=== PATIENT | female | born 1960 | race Caucasian/White ===

== ENCOUNTER 2016-08-03 18:15 | Emergency (ER) | payer MEDICARE ==
[~2016-08-03] VITALS: Ht 157.5 cm; Wt 84.1 kg
[~2016-08-03 18:15] MED LIST: ACYCLOVIR; CEPHALEXIN500 M1 PO; CIPRODEX OT; CLEOCIN HCL300 MG PO; COMPAZINE 110 MG/TAB PO; CYMBALTA; FLEXERIL 1010 MG/TAB PO; HCTZ; HCTZ 25MG TAB25 MG PO; LISINOPRIL10 MG PO; LORTAB 5/500 501 TAB; LORTAB 5/500 501 TAB PO; LORTAB 7.5/5001 TAB PO; MOTRIN 200200 MG/TAB PO; MOTRIN 600600 MG/TAB PO; NAPROXEN 3375 MG/TAB PO; NORCO 325 MG-51 TAB PO; NORVASC 5MG5 MG/TAB PO; PERCOCET 325 MG1 TA2 PO; POTASSIUM CH2 MEQ/ML PO; PRILOSEC 20MG20 MG PO; PRILOTC; PRINVIL; ROCEPHIN1 GM; SEPTRA DS 8001 TAB PO; STERIOD; VICODIN 5/5001 UDTAB PO; ZESTRIL 10MG10 MG PO; ZITHROMAX Z PA250 MG PO; ZOFRAN 4MG T4 MG/TAB PO; ZOFRAN ODT4 MG PO; htn med; steroid
[2016-08-03 18:19] VITALS: TEMP 98.3
[2016-08-03 19:10] LABS: BASO # 0.1 (0.0-0.2); BASO % 0.8 % (0.0-2.0); EOS # 0.2 (0.0-0.7); GRAN # 4.8 (1.4-6.5); GRAN % 55.7 % (42.2-75.2); HEMOGLOBIN 17.5 g/dl (12.5-16.0); LYMPH % 35.3 % (20.0-51.0); MEAN CELL VOLUME 87 fl (80.0-100.0); MEAN CORPUSCULAR HEMOGLOBIN 29 pg (27.0-31.0); MEAN CORPUSCULAR HGB CONC 33 g/dl (33.0-37.0); MEAN PLATELET VOLUME 9.9 fl (7.4-10.4); MONO # 0.5 (0.1-0.6); PLATELET COUNT 239 K/mm3 (130-400); RED BLOOD COUNT 6.04 M/mm3 (4.10-5.30); REDCELL DISTRIBUTION WIDTH-CV 13.5 % (11.5-14.5); WHITE BLOOD COUNT 8.5 K/mm3 (4.8-10.8)
[2016-08-03 19:11] LABS: HEMATOCRIT 52.4 % (37.0-47.0)
[2016-08-03 19:44] LABS: ADJUSTED CALCIUM 9.3 mg/dL (8.4-10.2); ALANINE AMINOTRANSFERASE 43 U/L (9-52); ALBUMIN 4.3 gm/dL (3.5-5.0); ALKALINE PHOSPHATASE 88 U/L (50-136); ANION GAP 13 mmol/L (7-16); BILIRUBIN,TOTAL 0.8 mg/dL (0.0-1.0); BLOOD UREA NITROGEN 14 mg/dL (7-17); CALCIUM 9.5 mg/dL (8.4-10.2); CARBON DIOXIDE 26 mmol/L (22-30); CHLORIDE 103 mmol/L (98-107); CREATININE, serum 1.21 mg/dL (0.52-1.25); GLUCOSE 87 mg/dL (74-106); LIPASE 68 U/L (23-300); POTASSIUM 3.4 mmol/L (3.4-5.0); SODIUM 142 mmol/L (137-145); TOTAL PROTEIN 7.2 gm/dL (6.4-8.2)
[2016-08-03 19:56] LABS: B-TYPE NATRIURETIC PEPTIDE 302 pg/mL (0-125)
[2016-08-03 19:57] LABS: TROPONIN-I < 0.012 ng/mL (0.000-0.034)
[2016-08-03] MEDS ORDERED: NORVASC 10MG10 MG PO (21:15)
[2016-08-03 21:46] VITALS: BP 162/116; PULSE 92
== END 2016-08-03 22:04 | disposition home or self-care (01) ==
LOC: COL.ER 18:15
PROVIDERS: Emergency Medicine
DX: I16.0 Hypertensive urgency (principal); T46.1X6A Underdosing of calcium-channel blockers, initial encounter; Z91.128 Patient's intentional underdosing of medication regimen for other reason; R07.89 Other chest pain; F41.9 Anxiety disorder, unspecified; R00.2 Palpitations
CPT/HCPCS: J2060; J7030

== ENCOUNTER 2016-08-24 10:49 | Emergency (ER) | payer MEDICARE ==
[~2016-08-24] VITALS: Ht 157.5 cm; Wt 84.1 kg
[~2016-08-24 10:49] MED LIST changes: +NORVASC 10MG10 MG PO
[2016-08-24 10:50] VITALS: PULSE 99; TEMP 97.5
[2016-08-24] MEDS ORDERED: NORCO 325 MG-51 TAB PO (13:24)
[2016-08-24 13:41] VITALS: BP 119/88
== END 2016-08-24 13:58 | disposition home or self-care (01) ==
LOC: COL.ER 10:49
DX: M54.32 Sciatica, left side (principal); I10 Essential (primary) hypertension
CPT/HCPCS: J1170

== ENCOUNTER 2016-09-27 15:16 | Emergency (ER) | payer MEDICARE, MEDICAID ==
[~2016-09-27] VITALS: Ht 157.5 cm; Wt 79.5 kg
[2016-09-27 15:18] VITALS: TEMP 97.9
[2016-09-27] MEDS ORDERED: NORVASC 10MG10 MG PO (15:23)
[2016-09-27 17:50] VITALS: BP 127/92; PULSE 94
[2016-09-27] MEDS ORDERED: FLEXERIL 1010 MG/TAB PO (17:50)
[2016-09-27] MEDS ORDERED: PERCOCET 325 MG1 TA2 PO (17:50)
== END 2016-09-27 17:58 | disposition home or self-care (01) ==
LOC: COL.ER 15:16
DX: M54.2 Cervicalgia (principal)
CPT/HCPCS: J2060

== ENCOUNTER → 2017-02-28 | Outpatient (CLI) | payer MEDICARE, MEDICAID | LOC: COL.RAD 02-23 08:15 | DX: N18.2 Chronic kidney disease, stage 2 (mild) (principal) ==

== ENCOUNTER 2017-11-26 18:42 | Emergency (ER) | payer MEDICARE, MEDICAID ==
[~2017-11-26] VITALS: Ht 157.5 cm; Wt 79.1 kg
[2017-11-26 18:46] VITALS: TEMP 96.9
[2017-11-26] MEDS ORDERED: COZAAR 50MG50 MG/TAB PO (19:44)
[2017-11-26] MEDS ORDERED: VITAMIN D 1001000 IU (19:44)
[2017-11-26] MEDS ORDERED: FLEXERIL 1010 MG/TAB PO (20:40)
[2017-11-26] MEDS ORDERED: NORCO 325 MG-51 TAB PO (20:40)
[2017-11-26 20:52] VITALS: BP 143/100; PULSE 82
== END 2017-11-26 20:55 | disposition home or self-care (01) ==
LOC: COL.ER 18:42
DX: G89.29 Other chronic pain (principal); M25.512 Pain in left shoulder; M54.2 Cervicalgia; M79.1 Myalgia; Z98.890 Other specified postprocedural states; Z85.42 Personal history of malignant neoplasm of other parts of uterus; Z85.43 Personal history of malignant neoplasm of ovary
CPT/HCPCS: J1885; J2360

== ENCOUNTER → 2018-03-21 | Outpatient (CLI) | payer MEDICARE, MEDICAID ==
[~2018-03-21] MED LIST changes: +COZAAR 50MG50 MG/TAB PO; +VITAMIN D 1001000 IU
== END ==
LOC: MC.RAD 15:03
DX: Z12.31 Encounter for screening mammogram for malignant neoplasm of breast (principal)

== ENCOUNTER → 2019-03-06 | Outpatient (CLI) | payer MEDICARE | LOC: COL.VAS 10:38 | DX: R42 Dizziness and giddiness (principal); I10 Essential (primary) hypertension ==

== ENCOUNTER 2019-03-25 06:47 | Day surgery (SDC) | payer MEDICARE ==
[~2019-03-25] VITALS: Ht 160 cm; Wt 78.1 kg
[~2019-03-25 06:47] MED LIST changes: -VITAMIN D 1001000 IU; +VITAMIN D 1001000 IU PO
[2019-03-25 07:11] VITALS: BP 124/85; PULSE 85; TEMP 98
[2019-03-25 10:00] VITALS: BP 109/81; PULSE 83; TEMP 96.5
[2019-03-25 10:15] VITALS: BP 106/72; PULSE 80
[2019-03-25 10:30] VITALS: BP 113/91; PULSE 77
--- NOTE | 2019-03-25 11:16 | NUR ---
PT RETURNED FROM ENDO TREATMENT ROOM INTO BAY 4. PT ALERT AND ORIENTATED, SLIGHTLY GROGGY. WAITING IN ROOM FOR HER. DENIES PAIN, NAUSEA OR DISCOMFORT AT THIS TIME. LUNGS CLEAR, HRR, BOWEL SOUNDS PRESENT AND HYPOACTIVE. PT REQUESTED COFFEE AND PUDDING. WILL MONITOR INTAKE AND PROGRESSION.
--- NOTE | 2019-03-25 11:21 | NUR ---
PT TOLERATING PUDDING AND FLUIDS WITHOUT DIFFICULTY. UP TO VOID WITHOUT DIFFICULTY. DENIES PAIN AND NAUSEA/VOMITING. TALKING WITH , WILL MONITOR PROGRESSION
--- NOTE | 2019-03-25 11:25 | NUR ---
PT DENIES NAUSEA AND VOMITING OR PAIN, VSS. IV DC'D TO RIGHT FOREARM WITHOUT DIFFICULTY. DISCHARGE INSTRUCTIONS GIVEN AND PATIENT AND SPOUSE VOICE UNDERSTANDING. PT DISCHARGED PER ORDERS. WAS TAKEN VIA WC OUT OF FACILITY INTO PT FAMILY VEHICLE. DRIVING.
== END 2019-03-25 14:59 | disposition home or self-care (01) ==
LOC: SDCO 06:47
DX: Z12.11 Encounter for screening for malignant neoplasm of colon (principal); D12.3 Benign neoplasm of transverse colon; D12.5 Benign neoplasm of sigmoid colon; K57.30 Diverticulosis of large intestine without perforation or abscess without bleeding; K62.89 Other specified diseases of anus and rectum; Z88.0 Allergy status to penicillin; Z88.8 Allergy status to other drugs, medicaments and biological substances
CPT/HCPCS: J2250; J2405; J3010; J7030

== ENCOUNTER → 2019-04-02 | Outpatient (CLI) | payer MEDICARE | LOC: MC.RAD 09:30 | DX: Z12.31 Encounter for screening mammogram for malignant neoplasm of breast (principal); R92.0 Mammographic microcalcification found on diagnostic imaging of breast ==

== ENCOUNTER → 2019-04-10 | Outpatient (CLI) | payer MEDICARE | LOC: MC.RAD 13:25 | DX: R92.1 Mammographic calcification found on diagnostic imaging of breast (principal); R92.8 Other abnormal and inconclusive findings on diagnostic imaging of breast ==

== ENCOUNTER 2019-09-06 06:38 | Inpatient (IN) | payer MEDICARE ==
[~2019-09-06] VITALS: Ht 157.5 cm; Wt 79.4 kg
[2019-09-06 07:35] LABS: BASO % 0.8 % (0.0-2.0); EOS % 0.8 % (0-4.0); GRAN # 3.8 (1.4-6.5); GRAN % 72.5 % (42.2-75.2); HEMATOCRIT 47.9 % (37.0-47.0); LYMPH # 0.8 (1.2-3.4); LYMPH % 16.1 % (20.0-51.0); MEAN CELL VOLUME 87 fl (80.0-100.0); MEAN CORPUSCULAR HEMOGLOBIN 29 pg (27.0-31.0); MEAN CORPUSCULAR HGB CONC 33 g/dl (33.0-37.0); MEAN PLATELET VOLUME 9.6 fl (7.4-10.4); MONO # 0.5 (0.1-0.6); MONO % 9.6 % (1.7-9.3); PLATELET COUNT 165 K/mm3 (130-400); RED BLOOD COUNT 5.48 M/mm3 (4.10-5.30); REDCELL DISTRIBUTION WIDTH-CV 13.2 % (11.5-14.5)
[2019-09-06 07:49] LABS: ALANINE AMINOTRANSFERASE 82 U/L (9-52); ALKALINE PHOSPHATASE 113 U/L (50-136); ANION GAP 13 mmol/L (7-16); AST,SGOT 119 U/L (15-37); BILIRUBIN,TOTAL 0.3 mg/dL (0.0-1.0); BLOOD UREA NITROGEN 11 mg/dL (7-17); CALCIUM 8.8 mg/dL (8.4-10.2); CARBON DIOXIDE 20 mmol/L (22-30); CHLORIDE 104 mmol/L (98-107); CREATININE, serum 0.83 (0.52-1.25); GLUCOSE 122 mg/dL (74-106); LIPASE 199 U/L (23-300); POTASSIUM 3.5 mmol/L (3.4-5.0); SODIUM 136 mmol/L (137-145); TOTAL PROTEIN 6.6 gm/dL (6.4-8.2)
[2019-09-06 08:09] LABS: TROPONIN-I < 0.012 ng/mL (0.000-0.035)
[2019-09-06 16:32] VITALS: BP 98/63; PULSE 76; TEMP 98
--- NOTE | 2019-09-06 18:30 | NUR ---
PT AHD C/O BACK PAIN THIS EVENING, ADMINISTERED TYLENOL, PT STATED WASNT MUCH RELIEF. PT ON 4L O2 AT THIS TIME. NO OTHER ISSUES VOICED THIS SHIFT.
[2019-09-06 20:42] VITALS: BP 111/69; PULSE 94; TEMP 98.6
--- NOTE | 2019-09-06 22:34 | NUR ---
RECIEVED REPORT FROM DAY SHIFT, PATIENT WAS RESTING IN BED. SHE WAS SWITCHED OVER TO A OXYMASK BECAUSE NOSE WAS STUFFY. NOTHING ABNORMAL ON ASSESSMENT. REPIRATORY THERAPY GAVE THE PATIENT AN INCENTIVE SPIROMETRY. ONE DOSE OF NORCO WAS GIVEN TO THE PATIENT AND THAT EASED HER PAIN TO A 3 FROM A 7. PATIENT DOES HAVE NORMAL SALINE RUNNING THROUGH HER IV. PATIENT GOT A CUP OF WATER AND SOME ICE CREAM FOR A SNACK. NO OTHER NEEDS AT THIS TIME
[2019-09-07] VITALS (7 sets, daily range): BP systolic 106–120; BP diastolic 65–76; PULSE 69–91; TEMP 98.2–98.9
--- NOTE | 2019-09-07 05:09 | NUR ---
PATIENT HAS BEEN RESTING IN BED FOR THE NIGHT. PATIENT REPORTED PAIN BUT ALL SHE HAD ORDERED WAS TYLENOL. PATIENT WAS VERY SLEEPY WHEN IN ROOM, SHE WOULD DOZE OFF WHEN VISITING WITH HER. PATIENT IS RECEIVING NORMAL SALINE IN HER 20 GAUGE RIGHT AC. PATIENT IS ON OXYMASK AT 2 L OF O2. PATIENT HAD A 1 TIME ORDER OF NORCO EARLIER IN THE EVENING THAT REALLY HELPED WITH HER PAIN THE TYLENOL DOESNT TOUCH THE PAIN. PATIENT'S IS IN THE ROOM WITH THE PATIENT AND RESTING IN THE RECLINER. PATIENT WAS GIVEN A FRESH PEPSI AND WATER IN A MUG. CALL LIGHT WITHIN REACH. NO COMPLAINS AT THIS TIME.
--- NOTE | 2019-09-07 07:02 | NUR ---
report given to YUN Berger.
[2019-09-07 07:09] LABS: BASO % 0.6 % (0.0-2.0); EOS # 0.1 (0.0-0.7); EOS % 1.7 % (0-4.0); GRAN # 1.7 (1.4-6.5); GRAN % 46.6 % (42.2-75.2); HEMATOCRIT 44.8 % (37.0-47.0); HEMOGLOBIN 14.4 g/dl (12.5-16.0); LYMPH # 1.4 (1.2-3.4); LYMPH % 39.2 % (20.0-51.0); MEAN CELL VOLUME 91 fl (80.0-100.0); MEAN CORPUSCULAR HEMOGLOBIN 29 pg (27.0-31.0); MEAN CORPUSCULAR HGB CONC 32 g/dl (33.0-37.0); MEAN PLATELET VOLUME 10.4 fl (7.4-10.4); MONO # 0.4 (0.1-0.6); MONO % 11.6 % (1.7-9.3); PLATELET COUNT 155 K/mm3 (130-400); RED BLOOD COUNT 4.94 M/mm3 (4.10-5.30); REDCELL DISTRIBUTION WIDTH-CV 13.8 % (11.5-14.5)
[2019-09-07 07:36] LABS: ALANINE AMINOTRANSFERASE 70 U/L (9-52); ALKALINE PHOSPHATASE 104 U/L (50-136); ANION GAP 8 mmol/L (7-16); AST,SGOT 67 U/L (15-37); BILIRUBIN,TOTAL < 0.1 mg/dL (0.0-1.0); BLOOD UREA NITROGEN 11 mg/dL (7-17); CARBON DIOXIDE 20 mmol/L (22-30); CHLORIDE 110 mmol/L (98-107); CREATININE, serum 0.78 (0.52-1.25); GLUCOSE 89 mg/dL (74-106); POTASSIUM 3.5 mmol/L (3.4-5.0); SODIUM 138 mmol/L (137-145); TOTAL PROTEIN 5.4 gm/dL (6.4-8.2)
--- NOTE | 2019-09-07 08:56 | NUR ---
Assessment complete. PT sleeping in bed, easy to arouse. States she feels a little better today. Her voice is audibly raspy but lung sounds were clear for the most part. She states she is having some back pain but refused the tylenol. IV site CD&I, IV fluids infusing at 100 ml/hr. She was satting around 93-92 at the lowest while off the oxygen so I lowered her to 1 L for the time being. No other needs were expressed at this time. Call light is in reach.
--- NOTE | 2019-09-07 11:36 | NUR ---
Plan: To return home in [place], [place] with Curt Rivas . Assess: Met with patient about care and DC. Mitra reports that she lives in [facility] with her spouse. Patient reports that she uses [facility] in town for her medications. Patient reports that her PCP is Pablo Flores. Patient's son Giuseppe is estella contact . Patient denies the use of any DME's. Denies any concerns with medicaitons. Spouse to transport home. Action: SW educated on supports in community, Patient declines [facility]. Nothing further.
--- NOTE | 2019-09-07 12:56 | NUR ---
Manager Housekeeping stopped by and offered prayer and support with patient.
--- NOTE | 2019-09-07 18:15 | NUR ---
Pt had an uneventful day. She has been on room air since earlier this morning and oxygen saturations have been stable. Her back pain is constant, been convering with PRN pain medication. Pt has been eating well, no longer on fluids. Has had at the bedside for most of the day. No further needs were expressed at this time. Call light is in place.
--- NOTE | 2019-09-07 21:41 | NUR ---
RECIEVED REPORT FROM DAY SHIFT. ASSESSED PATIENT AND SHE IS OFF OF HER OXYGEN AND RESTING IN BED. LUNGS ARE SOUNDING BETTER BUT STILL COARSE IN THE BASES. PATIENT IS STILL REPORTING PAIN IN HER BACK. ALL NESECITIES ARE BESIDE PATIENT ON BEDSIDE TABLE. IN ROOM WITH PATIENT
--- NOTE | 2019-09-08 01:16 | NUR ---
PATIENT IS RESTING IN BED WITH AT BEDSIDE
[2019-09-08 05:11] VITALS: BP 117/83; PULSE 75; TEMP 98.3
--- NOTE | 2019-09-08 05:40 | NUR ---
PATIENT HAS RESTED PEACEFULLY THROUGHOUT THE NIGHT. SHE DID NOT REQUEST ANY PAIN MEDICATIONS UNTIL I BROUGHT IN HER MORNING MEDICATION. SHE RATED THE PAIN AT A 7/10 IN HER BACK. PATIENT HAS NOT HAD ANY NEEDS THROUGHOUT THE NIGHT. WILL REPORT OFF TO DAY SHIFT ABOUT HOW THE PATIENTS NIGHT WAS UPON THEIR ARRIVAL.
--- NOTE | 2019-09-08 06:44 | NUR ---
REPORT GIVEN TO YUN GALINDO
[2019-09-08 07:23] VITALS: BP 117/82; PULSE 72; TEMP 97.8
--- NOTE | 2019-09-08 07:40 | NUR ---
PT REFUSED, UPSET STOMACH
[2019-09-08 07:48] LABS: BASO % 0.3 % (0.0-2.0); EOS # 0.1 (0.0-0.7); GRAN # 1.1 (1.4-6.5); GRAN % 30.8 % (42.2-75.2); HEMATOCRIT 49.2 % (37.0-47.0); HEMOGLOBIN 16.3 g/dl (12.5-16.0); LYMPH # 1.9 (1.2-3.4); LYMPH % 54.8 % (20.0-51.0); MEAN CELL VOLUME 89 fl (80.0-100.0); MEAN CORPUSCULAR HEMOGLOBIN 29 pg (27.0-31.0); MEAN CORPUSCULAR HGB CONC 33 g/dl (33.0-37.0); MEAN PLATELET VOLUME 10.4 fl (7.4-10.4); MONO # 0.3 (0.1-0.6); MONO % 9.8 % (1.7-9.3); PLATELET COUNT 164 K/mm3 (130-400); RED BLOOD COUNT 5.55 M/mm3 (4.10-5.30); REDCELL DISTRIBUTION WIDTH-CV 13.8 % (11.5-14.5)
[2019-09-08 08:02] VITALS: BP 132/97; PULSE 67
--- NOTE | 2019-09-08 09:00 | NUR ---
Assessment complete. Pt resting in bed stated she was very nauseous and felt like she was going to pass out. VS were normal. PRN nausea medication was provided as well as ice chips. was applying a cold rag to her forhead. She stated she felt the zofran helped. No other complaints at this time. Stated she just wanted to rest. will administer morning medications when she is feeling a little better. Will continue to monitor. IV site CD&I, flushed well. No further needs at this time. Call light is in reach.
[2019-09-08 12:25] VITALS: BP 114/77; PULSE 73; TEMP 97.9
[2019-09-08] MEDS ORDERED: TAMIFLU 75MG75 MG PO (14:19)
[2019-09-08] MEDS ORDERED: ZOFRAN ODT4 MG PO (14:20)
[2019-09-08 15:17] VITALS: BP 106/73; PULSE 69; TEMP 98.2
--- NOTE | 2019-09-08 17:00 | NUR ---
Pt left the floor at this time. Discharge instructions discussed. Questions answered
== END 2019-09-08 17:11 | disposition home or self-care (01) | DRG 871 ==
LOC: COL.ER 06:38 → MEDICAL 11:18
PROVIDERS: Emergency Medicine; Nurse Practitioner Family; ADMIT Student in an Organized Health Care Education/Training Program
DX: A41.9 Sepsis, unspecified organism (principal); J96.01 Acute respiratory failure with hypoxia; J10.1 Influenza due to other identified influenza virus with other respiratory manifestations; R65.20 Severe sepsis without septic shock; N18.2 Chronic kidney disease, stage 2 (mild); F41.9 Anxiety disorder, unspecified; G89.29 Other chronic pain; M54.9 Dorsalgia, unspecified; G62.9 Polyneuropathy, unspecified; I12.9 Hypertensive chronic kidney disease with stage 1 through stage 4 chronic kidney disease, or unspecified chronic kidney disease; M19.90 Unspecified osteoarthritis, unspecified site; Z85.42 Personal history of malignant neoplasm of other parts of uterus; Z85.43 Personal history of malignant neoplasm of ovary; Z85.830 Personal history of malignant neoplasm of bone; Z90.710 Acquired absence of both cervix and uterus; Z90.49 Acquired absence of other specified parts of digestive tract
CPT/HCPCS: 99223-AI; 99232-AI; 99239; A9284; J1650; J1885; J2405; J3010; J7030

== ENCOUNTER → 2020-05-06 | Outpatient (CLI) | payer MEDICARE ==
[~2020-05-06] MED LIST changes: +TAMIFLU 75MG75 MG PO
== END ==
LOC: MC.RAD 04-15 11:15
DX: Z12.31 Encounter for screening mammogram for malignant neoplasm of breast (principal); Z98.82 Breast implant status

== ENCOUNTER 2021-04-18 15:07 | Emergency (ER) | payer MEDICARE, MEDICAID ==
[~2021-04-18] VITALS: Ht 160 cm; Wt 70.9 kg
[2021-04-18 15:15] VITALS: BP 130/87; PULSE 86; TEMP 97.3
== END 2021-04-18 20:13 | disposition home or self-care (01) ==
LOC: COL.ER 15:07
DX: M54.2 Cervicalgia (principal)

== ENCOUNTER 2021-05-22 18:20 | Emergency (ER) | payer MEDICARE, MEDICAID ==
[~2021-05-22] VITALS: Ht 160 cm; Wt 71.8 kg
[2021-05-22 18:35] VITALS: TEMP 97.4
[2021-05-22 21:35] VITALS: BP 144/80; PULSE 78
== END 2021-05-22 21:35 | disposition home or self-care (01) ==
LOC: COL.ER 18:20
DX: S06.9X9A Unspecified intracranial injury with loss of consciousness of unspecified duration, initial encounter (principal); S59.901A Unspecified injury of right elbow, initial encounter; S99.912A Unspecified injury of left ankle, initial encounter; S69.91XA Unspecified injury of right wrist, hand and finger(s), initial encounter; F17.210 Nicotine dependence, cigarettes, uncomplicated; W01.198A Fall on same level from slipping, tripping and stumbling with subsequent striking against other object, initial encounter; Y93.E2 Activity, laundry

== ENCOUNTER → 2021-07-29 | Outpatient (CLI) | payer MEDICARE, MEDICAID ==
[2021-07-29 16:01] LABS: BASO # 0.1 K/mm3 (0.0-0.2); BASO % 0.7 % (0.0-2.0); EOS # 0.2 K/mm3 (0.0-0.7); EOS % 2.3 % (0.0-4.0); GRAN # 7.1 K/mm3 (1.4-6.5); GRAN % 67.3 % (42.2-75.2); HEMATOCRIT 50.1 % (37.0-47.0); HEMOGLOBIN 16.7 g/dl (12.5-16.0); LYMPH # 2.5 K/mm3 (1.2-3.4); LYMPH % 23.3 % (20.0-51.0); MEAN CELL VOLUME 87 fl (80.0-100.0); MEAN CORPUSCULAR HEMOGLOBIN 29 pg (27-31); MEAN CORPUSCULAR HGB CONC 33 g/dl (33.0-37.0); MEAN PLATELET VOLUME 9.3 fl (7.4-10.4); MONO # 0.7 K/mm3 (0.1-0.6); MONO % 6.2 % (1.7-9.3); PLATELET COUNT 234 K/mm3 (130-400); RED BLOOD COUNT 5.76 M/mm3 (4.10-5.30); REDCELL DISTRIBUTION WIDTH-CV 13.6 % (11.5-14.5)
[2021-07-29 16:09] LABS: PROTHROMBIN TIME 10.8 SECONDS (9.7-12.8)
[2021-07-29 16:16] LABS: CALCIUM 9.2 mg/dL (8.4-10.2); CREATININE, serum 1.04 mg/dL (0.57-1.11); POTASSIUM 4.2 mmol/L (3.5-4.5)
[2021-08-06 10:07] LABS: COLLECTION METHOD CLEAN CATCH
[2021-08-06 11:01] LABS: MUCOUS Present (NOT PRESENT); PH 5 (5-8); SQUAMOUS EPITHELIAL 0-2 /hpf (0-10); URINE APPEARANCE Clear (CLEAR/HAZY); URINE BACTERIA None Seen /hpf (NONE SEEN); URINE BILIRUBIN Negative (NEGATIVE); URINE BLOOD Negative (NEGATIVE); URINE COLOR Yellow (YELLOW); URINE GLUCOSE Negative (NEGATIVE); URINE KETONE Negative (NEGATIVE); URINE LEUKOCYTE ESTERASE 1+ (NEGATIVE); URINE NITRATE Negative (NEGATIVE); URINE PROTEIN(semi-quant) Negative (NEGATIVE); URINE RBC 0-2 /hpf (0-2); URINE UROBILINOGEN Negative (NEGATIVE)
== END ==
LOC: COL.LAB 15:23 → COL.RAD 15:23
PROVIDERS: Registered Nurse
DX: Z01.818 Encounter for other preprocedural examination (principal)

== ENCOUNTER → 2021-08-06 | Outpatient (CLI) | payer MEDICARE, MEDICAID | LOC: COL.CARD 09:28 | DX: Z01.818 Encounter for other preprocedural examination (principal) ==

== ENCOUNTER 2021-08-19 05:22 | Day surgery (SDC) | payer MEDICARE, MEDICAID ==
[~2021-08-19] VITALS: Ht 160 cm; Wt 70.8 kg
[2021-08-19] MEDS ORDERED: NORVASC 5MG5 MG/TAB PO (06:12)
[2021-08-19] MEDS ORDERED: COZAAR 50MG50 MG/TAB PO (06:12)
[2021-08-19] MEDS ORDERED: NEXIUM 20MG20 MG PO (06:13)
[2021-08-19] MEDS ORDERED: VITAMIN D31000 I1 PO (06:14)
[2021-08-19 06:15] VITALS: BP 125/89; PULSE 92; TEMP 98.2
[2021-08-19] MEDS ORDERED: ULTRAM 50MG TAB50 MG PO (06:23)
[2021-08-19] MEDS ORDERED: NORCO 325 MG-7.1 TAB PO (06:23)
[2021-08-19 07:40] VITALS: BP 117/68; PULSE 78
--- NOTE | 2021-08-19 07:40 | NUR ---
Patient returns to room 7 per cart from surgery accompanied by Ha CHO and Mary Carmen MALCOLM. Patient arouses to verbal stimuli. Right arm elevated on pillow and kept in sling. Supraclavicular block was placed pre-op and patient is not having any pain. States that the right arm is numb. Plaster splint in place on the right thumb. Right hand is warm to touch and finger tips x5 pink. IV fluids infusing and site is free of redness or swelling. Siderails up x2 and call light in reach. Spouse in room. Patient given water to drink. Call light in reach.
[2021-08-19 07:55] VITALS: BP 121/70; PULSE 72
--- NOTE | 2021-08-19 07:55 | NUR ---
Tolerates water and denies nausea. Right arm remains numb and in sling. Drew wrap and plaster splint in place.
[2021-08-19 08:10] VITALS: BP 104/70; PULSE 73
--- NOTE | 2021-08-19 08:10 | NUR ---
Eating muffin and drinking coffee. Denies nausea.
--- NOTE | 2021-08-19 08:27 | NUR ---
IV discontinued and site is free of redness. Assisted patient with dressing. Sling maintained to the RUE. Right arm remains numb from block placed pre-operatively. Dressing clean and dry on the right hand.
--- NOTE | 2021-08-19 08:30 | NUR ---
Complains of nausea. Took own Phenergan that was prescribed pre-operatively by Dr. Aguila.
--- NOTE | 2021-08-19 08:40 | NUR ---
Patient dismissed to home driven by spouse and taken to the front door per wheelchair and assisted into car with instructions in hand.
--- NOTE | 2021-08-19 10:32 | NUR ---
Has emesis while sitting in wheelchair of approximately 100cc green bile. States that she feels better and is wanting to go home.
== END 2021-08-19 08:40 | disposition home or self-care (01) ==
LOC: SDCO 05:22
DX: M18.11 Unilateral primary osteoarthritis of first carpometacarpal joint, right hand (principal); I10 Essential (primary) hypertension; E78.5 Hyperlipidemia, unspecified; K21.9 Gastro-esophageal reflux disease without esophagitis; J31.0 Chronic rhinitis; M19.90 Unspecified osteoarthritis, unspecified site; Z85.43 Personal history of malignant neoplasm of ovary; Z87.891 Personal history of nicotine dependence; Z79.899 Other long term (current) drug therapy; Z85.42 Personal history of malignant neoplasm of other parts of uterus; Z85.038 Personal history of other malignant neoplasm of large intestine
CPT/HCPCS: C1713; J0690; J2250; J2704; J3010; J7120

== ENCOUNTER → 2022-01-24 | Outpatient (CLI) | payer MEDICARE, MEDICAID ==
[~2022-01-24] MED LIST changes: +NEXIUM 20MG20 MG PO; +NORCO 325 MG-7.1 TAB PO; +ULTRAM 50MG TAB50 MG PO; +VITAMIN D31000 I1 PO
[2022-01-24 14:23] LABS: CALCIUM 9.1 mg/dL (8.4-10.2); CREATININE, serum 0.88 mg/dL (0.57-1.11); POTASSIUM 3.8 mmol/L (3.5-4.5)
== END ==
LOC: COL.LAB 13:27
PROVIDERS: Internal Medicine Nephrology
DX: N18.31 Chronic kidney disease, stage 3a (principal); E87.6 Hypokalemia

== ENCOUNTER 2022-08-11 00:02 | Emergency (ER) | payer MEDICARE, MEDICAID ==
[~2022-08-11] VITALS: Ht 157.5 cm; Wt 70.0 kg
[2022-08-11] MEDS ORDERED: LEVAQUIN 5500 MG/TA1 PO (03:20)
[2022-08-11 03:29] VITALS: BP 129/80; PULSE 92; TEMP 98
== END 2022-08-11 03:29 | disposition home or self-care (01) ==
LOC: COL.ER 00:02
DX: H70.002 Acute mastoiditis without complications, left ear (principal); Z98.890 Other specified postprocedural states

== ENCOUNTER 2022-10-19 07:35 | Day surgery (SDC) | payer MEDICARE, MEDICAID ==
[~2022-10-19] VITALS: Ht 160 cm; Wt 69.6 kg
[~2022-10-19 07:35] MED LIST changes: +LEVAQUIN 5500 MG/TA1 PO
[2022-10-19] MEDS ORDERED: PRIL40 PO (07:50)
[2022-10-19 08:04] VITALS: BP 103/86; PULSE 82; TEMP 98
[2022-10-19 09:30] VITALS: BP 108/77; PULSE 77; TEMP 97.4
[2022-10-19 09:45] VITALS: BP 108/85; PULSE 77
[2022-10-19 10:00] VITALS: BP 114/80; PULSE 72
--- NOTE | 2022-10-19 11:07 | NUR ---
0930: PATIENT TO BAY 3 PER CART FROM ENDO SUITE. PATIENT AMBULATED FROM CART TO RECLINER X2 ASSIST. REPORT RECEVIED FROM ENDO NURSE. VS STABLE. SP02 INITIALY 88% PATIENT ASYMPTOMATIC. NO C/O SHORTNESS OF BREATH. SPO2 WENT UP TO 94% ENDO NURSE ENCOURAGED PATIENT TO FOLLOW UP WITH PRIMARY CARE PHYSICIAN. PATIENT STATED UNDERSTANDING. PATIENT REQUESTED MUFFIN AND JUICE. NO COMPLALINTS AT THIS TIME. AT SIDE. CALL LIGHT IN REACH. 0945: DR. MCCORMICK IN TO SPEAK WITH PATIENT AT THIS TIME. SPO2 95%. NO COMPLAINTS OF SHORTNESS OF BREATH, PAIN OR DISCOMFORT. VS REMAIN STABLE. PATIENT TOLERATING JUICE AND MUFFIN. REMAINS AT SIDE. CALL LIGHT IN REACH. 1000: VS REMAIN STABLE. DISCHARGE EDUCATION COMPLETED AT THIS TIME. PATIENT STATED UNDERSTANDING OF INSTRUCTIONS. DISCHARGE PAPERWORK GIVEN TO PATIENT. IV DC'D AT THIS TIME. PATIENT DENIES ANY ASSISTANCE DRESSING. 1010: PATIENT AMBULATED WITH STEADY GAIT TO WHEELCHAIR. PATIENT OFF UNIT VIA WHEELCHAIR. PATIENT DISCHRGED TO HOME WITH VIA PERSONAL VEHICLE.
== END 2022-10-19 10:10 | disposition home or self-care (01) ==
LOC: SDCO 07:35
DX: Z12.11 Encounter for screening for malignant neoplasm of colon (principal); D12.5 Benign neoplasm of sigmoid colon; K57.30 Diverticulosis of large intestine without perforation or abscess without bleeding; Z28.310 Unvaccinated for COVID-19; Z85.43 Personal history of malignant neoplasm of ovary; Z85.42 Personal history of malignant neoplasm of other parts of uterus
CPT/HCPCS: J2704; J7120

== ENCOUNTER 2022-10-25 20:33 | Inpatient (IN) | payer MEDICARE, MEDICAID ==
[~2022-10-25] VITALS: Ht 160 cm; Wt 71.4 kg
[~2022-10-25 20:33] MED LIST changes: +PRIL40 PO
[2022-10-25 22:05] LABS: PROTHROMBIN TIME 11.4 SECONDS (9.7-12.8)
[2022-10-25 22:07] LABS: PARTIAL THROMBOPLASTIN TIME 23.9 SECONDS (26.0-37.0)
[2022-10-25 22:17] LABS: ALBUMIN 3.5 gm/dL (3.4-4.8); BILIRUBIN,TOTAL 0.3 mg/dL (0.2-1.2); CALCIUM 8.8 mg/dL (8.4-10.2); CREATININE, serum 0.79 mg/dL (0.57-1.11); POTASSIUM 3.4 mmol/L (3.5-4.5); TOTAL PROTEIN 6.7 gm/dL (6.2-8.1)
[2022-10-25 22:23] LABS: TROPONIN-I 0.01 ng/mL (0.00-0.033)
[2022-10-25 22:27] LABS: BASO # 0.1 K/mm3 (0.0-0.2); BASO % 0.8 % (0.0-2.0); EOS # 0.4 K/mm3 (0.0-0.7); EOS % 3.2 % (0.0-4.0); GRAN # 8.4 K/mm3 (1.4-6.5); GRAN % 69.2 % (42.2-75.2); HEMATOCRIT 41.6 % (37.0-47.0); HEMOGLOBIN 14.1 g/dl (12.5-16.0); LYMPH # 2.4 K/mm3 (1.2-3.4); LYMPH % 19.7 % (20.0-51.0); MEAN CELL VOLUME 86 fl (80.0-100.0); MEAN CORPUSCULAR HEMOGLOBIN 29 pg (27-31); MEAN CORPUSCULAR HGB CONC 34 g/dl (33.0-37.0); MEAN PLATELET VOLUME 9.5 fl (7.4-10.4); MONO # 0.8 K/mm3 (0.1-0.6); MONO % 6.7 % (1.7-9.3); PLATELET COUNT 394 K/mm3 (130-400); RED BLOOD COUNT 4.86 M/mm3 (4.10-5.30); REDCELL DISTRIBUTION WIDTH-CV 13.2 % (11.5-14.5)
[2022-10-26] VITALS (11 sets, daily range): BP systolic 106–133; BP diastolic 62–78; PULSE 69–101; TEMP 97.7–98.2
[2022-10-26 00:26] LABS: COLLECTION METHOD CLEAN CATCH
[2022-10-26 00:30] LABS: MUCOUS Present (NOT PRESENT); PH 5.5 (5.0-8.5); URINE APPEARANCE Clear (CLEAR/HAZY); URINE BACTERIA None Seen /hpf (NONE SEEN); URINE BLOOD Negative (NEGATIVE); URINE COLOR Yellow (YELLOW); URINE GLUCOSE Negative (NEGATIVE); URINE KETONE Negative (NEGATIVE); URINE NITRATE Negative (NEGATIVE); URINE PROTEIN(semi-quant) Negative (NEGATIVE); URINE UROBILINOGEN 0.2 E.U/dL (0.2-1.0)
--- NOTE | 2022-10-26 05:06 | NUR ---
62 yo female admitted for further care and management of acute respiratory failure and also concerns for sepsis possibly of pulmonary etiology (L upper lobe pneumonia), but a EQUIPMENT PROCESSOR source can not be ruled out. ht 160 cm wt 71.4 kg SCr 0.79 with estimated CrCl 60 ml/min half life 12.5 hours Plan: Will give an initial loading dose of vancomycin 1750 mg x1 (24.5 mg/kg); followed by a maintenance regimen of vancomycin 1250 mg q12h to target a goal trough of 15-25 mcg/ml to allow for adequate EQUIPMENT PROCESSOR concentrations. Will follow patient's renal function, micro data, and vancomycin levels as indicated to assess for any necessary changes to regimen. Thank you for this dosing consult.
--- NOTE | 2022-10-26 07:10 | NUR ---
ATTEMPTED TO CALL [facility], NOT IN YET.
--- NOTE | 2022-10-26 07:10 | NUR ---
PATIENT AWAKE AND ALERT, RESTING IN BED. AT BEDSIDE. PATIENT DENIES ANY NEEDS OR COMPLAINTS AT THIS TIME. CALL LIGHT WITHIN REACH.
[2022-10-26 07:41] LABS: BASO % 0.3 % (0.0-2.0); EOS % 0.2 % (0.0-4.0); GRAN # 5.5 K/mm3 (1.4-6.5); HEMATOCRIT 43.4 % (37.0-47.0); HEMOGLOBIN 14.7 g/dl (12.5-16.0); LYMPH # 0.6 K/mm3 (1.2-3.4); LYMPH % 9.2 % (20.0-51.0); MEAN CELL VOLUME 87 fl (80.0-100.0); MEAN CORPUSCULAR HEMOGLOBIN 29 pg (27-31); MEAN CORPUSCULAR HGB CONC 34 g/dl (33.0-37.0); MEAN PLATELET VOLUME 10.3 fl (7.4-10.4); MONO # 0.1 K/mm3 (0.1-0.6); MONO % 0.8 % (1.7-9.3); PLATELET COUNT 348 K/mm3 (130-400); RED BLOOD COUNT 5.02 M/mm3 (4.10-5.30); REDCELL DISTRIBUTION WIDTH-CV 13.2 % (11.5-14.5)
[2022-10-26 07:56] LABS: CALCIUM 8.6 mg/dL (8.4-10.2); CREATININE, serum 0.81 mg/dL (0.57-1.11); MAGNESIUM 1.7 mg/dL (1.6-2.6); POTASSIUM 3.4 mmol/L (3.5-4.5)
--- NOTE | 2022-10-26 09:21 | NUR ---
PER RADIOLOGY UNKNOWN TIME LP WILL BE DONE. THEY WILL CALL RN WITH 15-30 MINUTE HEADS UP.
--- NOTE | 2022-10-26 11:05 | NUR ---
DANIEL met with the patient and her , Curt Noguera (ph#[phone]), to discuss discharge plan. The patient lives in [place] with her . She reports independence with ADLs and does not have any DME. She is currently on 6 liters of oxygen and confirms she does not have home oxygen. The patient's primary care provider is Arleth Shah APRN at the [facility] and she obtains her medications from [facility]. The patient states that she has completed a DPOA-HC and she just needs to get it notarized. She provides that she is designating her . The patient plans to return home with her upon discharge. *Discharge plan: home with . She is currently requiring oxygen. May need oxygen set up upon discharge*
--- NOTE | 2022-10-26 14:15 | NUR ---
PATIENT TAKEN DOWN FOR LP.
--- NOTE | 2022-10-26 15:35 | NUR ---
INOFRMED BY MARGOT THAT DR WALTERS WILL SEE PATIENT VIA TELE HEALTH TOMORROW D/T PATIENT BEING GONE FROM ROOM AT PROCEDURE.
--- NOTE | 2022-10-26 15:43 | NUR ---
PATIENT ARRIVED BACK FROM LP. PATIENT FLAT TIME OF 1 HOUR. POST OP VITALS INITIATED. VITAL SIGNS STABLE, BP 112/68, HR 92 RESP 16 O2 98 PERCENT ON 6L NC-HUMIDIFIED.
[2022-10-26 16:05] LABS: CSF APPEARANCE CLEAR; CSF COLOR COLORLESS
[2022-10-26 16:06] LABS: CSF RBC 2 /mm3 (0-0)
[2022-10-26 16:23] LABS: GLUCOSE,CSF 87 mg/dL (40-70); TOTAL PROTEIN,CSF 23 mg/dL (15-45)
[2022-10-26 16:50] LABS: CSF MONONUCLEAR 100 % (70-100); CSF POLYMORPHONUCLEAR 0 % (0-6)
--- NOTE | 2022-10-26 17:30 | NUR ---
PATIENT AWAKE AND ALERT, RESTING IN BED. AT BEDSIDE. PATIENTS DENIES ANY NEEDS OR COMPLAINTS AT THIS TIME. CALL LIGHT WITHIN REACH.
--- NOTE | 2022-10-26 20:00 | NUR ---
Assessment complete. A&Ox3. Denies pain/nausea. Short of breath with activity. O2@3L/NC. Noted to have a rash to right upper arm. States she got in to poison guillermina. Plan of care discussed for this shift to include meds/calling for questions/concerns. Verbalizes understanding. Call light in reach. Will monitor.
--- NOTE | 2022-10-26 21:21 | NUR ---
INT to left hand infiltrated. New IV placed to right hand-20g-x1 attempt. Tolerated well.
[2022-10-27] VITALS (11 sets, daily range): BP systolic 95–128; BP diastolic 48–89; PULSE 78–99; TEMP 97.8–99.1
--- NOTE | 2022-10-27 05:25 | NUR ---
Patient had an uneventful night. VS remained stable. O2@3L/NC with good saturations. INT to right hand flushes well with no s/s of infiltration. TELE reports SR. Denied pain/nausea/shortness of breath. Denies current questions/concerns. Call light in reach. Will monitor.
--- NOTE | 2022-10-27 08:10 | NUR ---
UPON ENTERING ROOM, PATIENT NASAL CANNULA WAS NOT IN HER NARES. PER PATIENT SHE HAD TAKEN IT OUT NOT LONG AGO TO BLOW HER NOSE. O2 SATURATION CHECKED AND WAS 95% ON ROOM AIR. RESPIRATORY NOTIFIED.
--- NOTE | 2022-10-27 08:21 | NUR ---
PER RESPIRATORY LEAVE PATIENT ON ROOM AIR (MONITOR STILL ON) AND RECHECK IN 20 MINUTES.
[2022-10-27 08:41] LABS: HEMATOCRIT 44.7 % (37.0-47.0); HEMOGLOBIN 14.7 g/dl (12.5-16.0); MEAN CELL VOLUME 87 fl (80.0-100.0); MEAN CORPUSCULAR HEMOGLOBIN 29 pg (27-31); MEAN CORPUSCULAR HGB CONC 33 g/dl (33.0-37.0); RED BLOOD COUNT 5.13 M/mm3 (4.10-5.30); REDCELL DISTRIBUTION WIDTH-CV 13.2 % (11.5-14.5)
[2022-10-27 08:43] LABS: PLATELET COUNT 451 K/mm3 (130-400)
[2022-10-27 08:53] LABS: CALCIUM 9.1 mg/dL (8.4-10.2); CREATININE, serum 0.79 mg/dL (0.57-1.11); POTASSIUM 3.8 mmol/L (3.5-4.5)
--- NOTE | 2022-10-27 08:58 | NUR ---
UPON ENTERING ROOM TO RECHECK PATIENTS O2 SATURATION. PATIENT LYING SUPINE, ASLEEP. O2 MONITOR READING 91-92%. PATIENT LEFT ON ROOM AIR. CALL LIGHT WITHIN HER REACH.
--- NOTE | 2022-10-27 09:30 | NUR ---
PATIENTS APPROACHED NURSING STATION AND REQUESTED THAT A NEW PHYSICIAN SEE HIS . PATIENTS VERBALIZED SOME FUSTRATION THAT WE STILL DO NOT HAVE A DIAGNOSIS REGARDING THE PAIN HIS HAD IN HER HEAD AND NECK, AND THAT THE MD THINKS ITS "A HEADACHE/MIGRAINE" AND THAT IT IS "NOT WHATS WRONG WITH HER." I ASSURED HIM I WOULD SPEAK TO THE RESIDENT CARE MANAGER AND SEE WHAT WE CAN DO.
--- NOTE | 2022-10-27 09:45 | NUR ---
UPON SPEAKING WITH PATIENT , SHE STATES THE MD WAS IMPLYING HER PAIN IN HER NECK AND HEAD IS DUE TO A MIGRAINE/ HEADACHE, HOWEVER SHE HAS HAD THEM BEFORE AND "THIS IS NOT THAT IT IS WAY BEYOND IT." NATHALY REPORTS IT HAD LASTED 3-4 DAYS THE LAST TIME, AND FELT LIKE HER HEAD WAS HOT, AND HURT TO THE TOUCH LIKE HER NERVES WERE ON FIRE. PER PATIENT DURING THAT, SHE WAS UNABLE TO LIFT HER HEAD OR LEAN BACK HER HEAD WITHOUT PHYSICALLY USING HER HANDS TO HELP. PATIENT DENIES HAVING ANY PAIN OR ISSUES LIKE THIS SINCE ADMISSION BUT HAD CAME TO THE ER THIS TIME BECAUSE SHE "COULDNT ENDURE IT " AGAIN.
--- NOTE | 2022-10-27 10:00 | NUR ---
SPOKE WITH EARLY CHILDHOOD SPECIALIST AND SHEARING MACHINE TENDER MADE AWARE AND WILL INFORM ME WHAT SOLUTION WE CAN FIND.
--- NOTE | 2022-10-27 10:30 | NUR ---
INFORMED BY POWER TRANSMISSION ENGINEER THAT THEY PLACED A NEURO CONSULT. POWER TRANSMISSION ENGINEER CALLED CONSULT TO DR CAN. THIS RN UPDATED PATIENT -PATIENT WAS HAPPY SHE WILL BE SEEING DR CAN, AND MENTIONED THAT EVEN THOUGH HE "ALSO HAS AN ACCENT"SHE THINKS SHE WILL BE ABLE TO UNDERSTAND HIM AND HAS SEEN HIM BEFORE. ONCE THE PATIETN MENTIONED DR CANS ACCENT , HER HUSABND STATED "WHAT IF WE DONT LIKE THIS ONE WELL," HIS RESPONDED "IT ISNT ABOUT LIKEING HIM, I JUST WANT TO UNDERSTAND HIM AND HIM TO LISTEN WHEN I TRY TO TELL HIM ITS NOT A MIGRAINE THAT I HAD EXPERIENCED." PATIENT SEEMS OPEN TO SEEING NEUROLOGY AND VOICES BEING SATISFIED WITH HOW THINGS HAVE PROGRESSED TODAY REAGRDING THIS "ISSUE."
[2022-10-27 13:07] LABS: HSV 2 DNA PCR QUAL Not Detected (())
--- NOTE | 2022-10-27 14:50 | NUR ---
Telehealth visit conducted with Dr. Gil Mayers, Infectious Disease. Patient consented to visit. Patient's present Telecommunication initiated without any difficulties during exam. All questions were answered by Dr. Mayers
--- NOTE | 2022-10-27 18:00 | NUR ---
PATIENT AWAKE AND ALERT, RESTING IN BED. AT BEDSIDE. PATIENT DENIES ANY HEAD OR NECK PAIN AT THIS TIME. CALL LIGHT WITHIN REACH.
--- NOTE | 2022-10-27 22:25 | NUR ---
Patient assessed around 2034. Denied having pain and discomfort. Peripheral INT to right hand redressed due to dressing comming off, and flushed. Denied having pain and discomfort when flushed, no redness, swelling, or drainage noted. Started IV ABX. While this nurse was in another room, patient complained of pain to IV site. Another nurse checked on patient. When this nurse was availabe, nurse let this nurse know about pain to IV site. This nurse checked on patient. Patient having pain to IV site. Stopped IV ABX. Redness to area with some leaking noted to IV site. Took IV out and attempted to start new IV to left forearm, unsuccessful. Offered heat/ice to site and requested ice. Given ice for right hand, and told patient that I would have someone else attempt to start new IV. Patient told PCT that she was continueing to have pain to site. This nurse went to get warm blanket to see if that would help. Patient in hallway complaining of pain. In room, patient requested another nurse to come see her arm as well. Stated that she was having severe pain that was now moving up to her tricep area. Redness only to old IV site at right wrist area with minimal swelling. Again, encouraged elevataion, ice, and or warmth. Allowed elevation but continues to decline ice and warm pack. Offered Acetaminophen. now in room stating that Tylenol will not work and demanded physician be called. This nuse called [facility] Oconnell. Received order for Tramadol. Given along with Acetaminophen around 2149. This nurse checked back on patient again around 2219. Asked how her pain was doing. Arm is elevated on pillow, declined ice and heat. Redness only to right wrist area where IV site was. Stated that her pain was getting better. Patient aware that new IV is still needed. Encouraged her to call when she was ready and I would have another nurse attempt to gain IV access as requested, and voiced understanding.
[2022-10-28 00:13] VITALS: BP_SYST 118
[2022-10-28 03:22] VITALS: BP 122/81; PULSE 76; TEMP 98.6
[2022-10-28 03:37] VITALS: BP_SYST 122
--- NOTE | 2022-10-28 05:40 | NUR ---
Patient did allow another nurse to start new IV site to left hand. Also had requested that that nurse give her her IV ABX, and that nurse did so. Patient in bed with call light within reach, eyes closed. at bedside. Voices no further questions, needs, or concerns at this time.
[2022-10-28 07:03] VITALS: BP 96/64; PULSE 72; TEMP 98.3
[2022-10-28 07:34] LABS: BASO # 0.1 K/mm3 (0.0-0.2); BASO % 1.2 % (0.0-2.0); EOS # 0.2 K/mm3 (0.0-0.7); EOS % 2.6 % (0.0-4.0); GRAN # 5.7 K/mm3 (1.4-6.5); GRAN % 60.4 % (42.2-75.2); HEMATOCRIT 42.9 % (37.0-47.0); HEMOGLOBIN 14.7 g/dl (12.5-16.0); LYMPH # 2.8 K/mm3 (1.2-3.4); LYMPH % 29.7 % (20.0-51.0); MEAN CELL VOLUME 86 fl (80.0-100.0); MEAN CORPUSCULAR HEMOGLOBIN 29 pg (27-31); MEAN CORPUSCULAR HGB CONC 34 g/dl (33.0-37.0); MEAN PLATELET VOLUME 9.7 fl (7.4-10.4); MONO # 0.5 K/mm3 (0.1-0.6); MONO % 5.1 % (1.7-9.3); PLATELET COUNT 393 K/mm3 (130-400); RED BLOOD COUNT 5.01 M/mm3 (4.10-5.30); REDCELL DISTRIBUTION WIDTH-CV 13.4 % (11.5-14.5)
[2022-10-28 07:49] LABS: CALCIUM 8.5 mg/dL (8.4-10.2); CREATININE, serum 0.76 mg/dL (0.57-1.11); POTASSIUM 3.4 mmol/L (3.5-4.5)
[2022-10-28] MEDS ORDERED: NORCO 325 MG-51 TAB PO (08:35)
[2022-10-28 11:09] VITALS: BP 103/63; PULSE 91; TEMP 98.4
[2022-10-28 13:00] VITALS: BP_SYST 103
[2022-10-28] MEDS ORDERED: OMNICEF 300MG300 MG PO ×2 (14:23)
[2022-10-28] MEDS ORDERED: ZOFRAN 4MG T4 MG/TAB PO (14:24)
[2022-10-28] MEDS ORDERED: DOXYCYCLINE 10100 MG PO (14:31)
--- NOTE | 2022-10-28 15:00 | NUR ---
Telehealth visit conducted with Dr. Gil Mayers, Infectious Disease. Patient consented to visit. Patients present. Telecommunication initiated without any difficulties during exam. All questions were answered by Dr. Mayers
--- NOTE | 2022-10-28 15:44 | NUR ---
The patient is to discharge back home with her today, 10/28. SW met with the patient and presented and read the IM form outloud to her. The patient verbalized understanding and agreement to discharge today. She signed the form and SW provided her with a copy. The patient and report that they did want to talk to the nurse hull outfit supervisor before leaving. Nurse hull outfit supervisor was notified. No additional needs at this time.
== END 2022-10-28 16:47 | disposition home or self-care (01) | DRG 193 ==
LOC: COL.ER 20:33 → MEDICAL 23:41
PROVIDERS: Emergency Medicine; Physician Assistant; Student in an Organized Health Care Education/Training Program; ADMIT Internal Medicine
PROC: 009U3ZX Drainage of Spinal Canal, Percutaneous Approach, Diagnostic (ICD-10-PCS; principal; 2022-10-26)
PROC: B01B1ZZ Fluoroscopy of Spinal Cord using Low Osmolar Contrast (ICD-10-PCS; 2022-10-26)
DX: J18.9 Pneumonia, unspecified organism (principal); J96.01 Acute respiratory failure with hypoxia; R51.9 Headache, unspecified; M54.2 Cervicalgia; I44.7 Left bundle-branch block, unspecified; F41.9 Anxiety disorder, unspecified; G62.9 Polyneuropathy, unspecified; I12.9 Hypertensive chronic kidney disease with stage 1 through stage 4 chronic kidney disease, or unspecified chronic kidney disease; Z20.822 Contact with and (suspected) exposure to COVID-19; H66.92 Otitis media, unspecified, left ear; H70.90 Unspecified mastoiditis, unspecified ear; N18.30 Chronic kidney disease, stage 3 unspecified; Z85.43 Personal history of malignant neoplasm of ovary; Z85.42 Personal history of malignant neoplasm of other parts of uterus; Z85.830 Personal history of malignant neoplasm of bone; Z90.89 Acquired absence of other organs; Z90.710 Acquired absence of both cervix and uterus; Z90.49 Acquired absence of other specified parts of digestive tract; Z88.1 Allergy status to other antibiotic agents; Z88.0 Allergy status to penicillin; Z88.8 Allergy status to other drugs, medicaments and biological substances; Z23 Encounter for immunization
CPT/HCPCS: J0456; J0696; J1100; J3370; J7030; J7040; J7050; Q9967

== ENCOUNTER 2023-08-01 14:35 | Emergency (ER) | payer MEDICARE ==
[~2023-08-01] VITALS: Ht 149.9 cm; Wt 68.2 kg
[~2023-08-01 14:35] MED LIST changes: +DECADRON6 MG PO; +DOXYCYCLINE 10100 MG PO; +DOXYCYCLINE HY100 MG PO; +MONODOX100 PO; +NEURONTIN100 MG/CAP PO; +OMNICEF 300MG300 MG PO; +PREDNISONE20 MG PO; +RT Albuterol HFA MDI IH
[2023-08-01 16:57] LABS: BASO # 0.1 K/mm3 (0.0-0.2); BASO % 1.1 % (0.0-2.0); EOS # 0.2 K/mm3 (0.0-0.7); EOS % 2.6 % (0.0-4.0); GRAN # 5.6 K/mm3 (1.4-6.5); GRAN % 61.3 % (42.2-75.2); HEMOGLOBIN 17.2 g/dl (12.5-16.0); LYMPH # 2.6 K/mm3 (1.2-3.4); MEAN CELL VOLUME 87 fl (80.0-100.0); MEAN CORPUSCULAR HEMOGLOBIN 29 pg (27-31); MEAN CORPUSCULAR HGB CONC 34 g/dl (33.0-37.0); MEAN PLATELET VOLUME 9.4 fl (7.4-10.4); MONO # 0.5 K/mm3 (0.1-0.6); MONO % 5.7 % (1.7-9.3); PLATELET COUNT 303 K/mm3 (130-400); RED BLOOD COUNT 5.89 M/mm3 (4.10-5.30); REDCELL DISTRIBUTION WIDTH-CV 13.4 % (11.5-14.5)
[2023-08-01 17:15] LABS: ALBUMIN 3.7 gm/dL (3.4-4.8); BILIRUBIN,TOTAL 0.3 mg/dL (0.2-1.2); CALCIUM 8.9 mg/dL (8.4-10.2); CREATININE, serum 1.22 mg/dL (0.57-1.11); POTASSIUM 3.8 mmol/L (3.5-4.5); TOTAL PROTEIN 6.4 gm/dL (6.2-8.1)
[2023-08-01 17:21] LABS: TROPONIN-I 0.011 ng/mL (0.00-0.033)
[2023-08-01] MEDS ORDERED: Albuterol/Ipratropium 3 MG-0.5 MG/3 ML Neb Soln IH ONE (17:45)
[2023-08-01] MEDS ORDERED: dexAMETHasone 10 MG/ML VIAL IV ONE (17:45)
[2023-08-01] MEDS ORDERED: NEB MC (18:27)
[2023-08-01] MEDS ORDERED: PREDNISONE50 MG PO (18:27)
[2023-08-01] MEDS ORDERED: IPRATROPIUM BROM3 M1 IH (18:27)
[2023-08-01 18:56] VITALS: BP 140/108; PULSE 73; TEMP 97.3
== END 2023-08-01 18:56 | disposition home or self-care (01) ==
LOC: COL.ER 14:35
PROVIDERS: Physician Assistant
DX: J98.01 Acute bronchospasm (principal); I28.1 Aneurysm of pulmonary artery; Z86.16 Personal history of COVID-19
CPT/HCPCS: J1100